=== PATIENT | male | born 1970 | race Hispanic/Latino ===

== ENCOUNTER → 2022-12-02 | Day surgery (SDC) | payer BC ==
[~2022-12-02] MED LIST: CINNAMON500 MG PO; CRESTOR10 MG PO; FENTANYL CITRATE/PF 100MCG/2 ML INJ ONE; LACTATED RINGER'S 1,000 ML ONE; LIDOCAINE HCL 2% LOCAL INJ 5 ML SDV VIAL INJ ONE; LOSARTAN-HCTZ1 EACH PO; METFORMIN HCL500 MG PO; PROPOFOL IV EMULSION 10 MG/ML 20 ML VIAL ONE; PROPOFOL IV EMULSION 10 MG/ML 50 ML VIAL IV ONE
[2022-12-02 11:25] VITALS: BP 118/74
== END | disposition home or self-care (01) ==
LOC: OR 08:16
PROVIDERS: ATTEND Internal Medicine Gastroenterology
DX: R10.32 Left lower quadrant pain (principal); D12.0 Benign neoplasm of cecum; D12.3 Benign neoplasm of transverse colon; K62.1 Rectal polyp; R19.04 Left lower quadrant abdominal swelling, mass and lump; K64.8 Other hemorrhoids; Z71.3 Dietary counseling and surveillance; E11.9 Type 2 diabetes mellitus without complications; E78.00 Pure hypercholesterolemia, unspecified; Z01.810 Encounter for preprocedural cardiovascular examination; Z79.84 Long term (current) use of oral hypoglycemic drugs; Z79.899 Other long term (current) drug therapy; Z68.26 Body mass index [BMI] 26.0-26.9, adult; Z86.16 Personal history of COVID-19
CPT/HCPCS: 36415; 45380; 45385; 82948; 93005; J2001; J2704 ×2; J3010; J7121; 45378; 45384

== ENCOUNTER 2023-07-28 20:01 | Emergency (ER) | payer BC ==
[~2023-07-28] VITALS: Ht 177.8 cm; Wt 96.2 kg
[~2023-07-28 20:01] MED LIST changes: -FENTANYL CITRATE/PF 100MCG/2 ML INJ ONE; -LACTATED RINGER'S 1,000 ML ONE; -LIDOCAINE HCL 2% LOCAL INJ 5 ML SDV VIAL INJ ONE; -PROPOFOL IV EMULSION 10 MG/ML 20 ML VIAL ONE; -PROPOFOL IV EMULSION 10 MG/ML 50 ML VIAL IV ONE
[2023-07-28 21:48] LABS: ALBUMIN 4.2 g/dL (3.5-5.0); ALBUMIN/GLOBULIN RATIO 1.2 (0.8-2.0); ANION GAP 16.7 mmol/L (8-16); BILIRUBIN,TOTAL 0.9 mg/dL (0.2-1.2); CALCIUM 9.7 mg/dL (8.4-10.2); CREATININE, SERUM 0.96 mg/dL (0.72-1.25); POTASSIUM 3.7 mmol/L (3.5-5.1); TOTAL PROTEIN 7.6 g/dL (6.5-8.1)
[2023-07-28 22:05] LABS: BASOPHILS % 0.4 % (0.0-1.0); EOSINOPHILS # (AUTO) 0.2 (0.0-0.4); EOSINOPHILS % 1.5 % (0.0-6.0); HEMATOCRIT 43.9 % (38.2-49.6); HEMOGLOBIN 14.6 g/dL (14.0-18.0); LYMPHOCYTES # (AUTO) 1.8 (1.0-3.2); LYMPHOCYTES % 16.1 % (18.0-39.1); MEAN CORPUSCULAR HEMOGLOBIN 26.4 pg (28-32); MEAN CORPUSCULAR HGB CONC 33.3 g/dL (31-35); MEAN CORPUSCULAR VOLUME 79.2 fL (81-99); MONOCYTES # (AUTO) 0.7 (0.2-0.8); MONOCYTES % 6.3 % (4.4-11.3); NEUTROPHILS # (AUTO) 8.5 (2.1-6.9); NEUTROPHILS % 74.8 % (38.7-80.0); PLATELET COUNT 313 x10e3/uL (140-360); RED BLOOD COUNT 5.54 x10e6/uL (4.3-5.7); WHITE BLOOD COUNT 11.35 x10e3/uL (4.8-10.8)
[2023-07-28] MEDS ORDERED: IOPAMIDOL 370 MG/ML 100 ML INFUS..BTL INJ ONE (22:19)
[2023-07-28] MEDS ORDERED: SODIUM CHLORIDE 0.9% 100 ML ONE (22:20)
[2023-07-28 22:58] LABS: COLOR,URINE YELLOW (YELLOW)
[2023-07-28 22:59] LABS: BILIRUBIN,URINE NEGATIVE (NEGATIVE); CLARITY,URINE CLEAR (CLEAR); GLUCOSE, URINE 2+ (NEGATIVE); KETONES,URINE TRACE (NEGATIVE); LEUKOCYTE ESTERASE ,URINE NEGATIVE (NEGATIVE); NITRITE,URINE NEGATIVE (NEGATIVE); PH,URINE 5.5 (5 - 7); PROTEIN,URINE DIPSTICK TRACE (NEGATIVE); URINE UROBILINOGEN 0.2 mg/dL (0.2 - 1)
[2023-07-29 00:11] LABS: WBC,URINE (MAN) 0-5 /HPF (0-5)
[2023-07-29 00:13] LABS: BACTERIA,URINE MODERATE /HPF; EPITHELIAL CELLS,URINE FEW /LPF; RBC,URINE 0-5 /HPF (0-5)
[2023-07-29 00:17] VITALS: O2SAT 98
[2023-07-29] MEDS ORDERED: DOXYCYCLINE HY100 MG PO (00:24)
== END 2023-07-29 00:44 | disposition home or self-care (01) ==
LOC: ER 20:10
DX: R10.30 Lower abdominal pain, unspecified (principal); K80.20 Calculus of gallbladder without cholecystitis without obstruction; K76.0 Fatty (change of) liver, not elsewhere classified; R30.0 Dysuria; E11.65 Type 2 diabetes mellitus with hyperglycemia; I10 Essential (primary) hypertension; E78.5 Hyperlipidemia, unspecified; R94.31 Abnormal electrocardiogram [ECG] [EKG]
CPT/HCPCS: 36415; 71275; 74174; 80053; 81001; 84484; 85025; 93005; 99284; J7050; Q9967

== ENCOUNTER → 2024-08-26 | Day surgery (SDC) | payer BC ==
[2024-08-20 09:10] LABS: BASOPHILS % 0.5 % (0.0-1.0); EOSINOPHILS # (AUTO) 0.1 (0.0-0.4); EOSINOPHILS % 1.8 % (0.0-6.0); HEMATOCRIT 42.9 % (38.2-49.6); HEMOGLOBIN 13.9 g/dL (14.0-18.0); LYMPHOCYTES # (AUTO) 1.6 (1.0-3.2); MEAN CORPUSCULAR HEMOGLOBIN 26.5 pg (28-32); MEAN CORPUSCULAR HGB CONC 32.4 g/dL (31-35); MEAN CORPUSCULAR VOLUME 81.7 fL (81-99); MONOCYTES # (AUTO) 0.5 (0.2-0.8); NEUTROPHILS % 68.3 % (38.7-80.0); PLATELET COUNT 254 x10e3/uL (140-360); RED BLOOD COUNT 5.25 x10e6/uL (4.3-5.7); WHITE BLOOD COUNT 7.32 x10e3/uL (4.8-10.8)
[2024-08-20 09:46] LABS: ALBUMIN/GLOBULIN RATIO 1.5 (0.8-2.0); ANION GAP 13.1 mmol/L (8-16); BILIRUBIN,TOTAL 1.1 mg/dL (0.2-1.2); CALCIUM 9.6 mg/dL (8.4-10.2); CREATININE, SERUM 0.87 mg/dL (0.72-1.25); POTASSIUM 4.1 mmol/L (3.5-5.1); TOTAL PROTEIN 6.7 g/dL (6.5-8.1)
[~2024-08-26] MED LIST changes: +ACETAMINOPHEN 1000 MG/100 ML 100 ML IV ONE; +DOXYCYCLINE HY100 MG PO; +FENTANYL CITRATE/PF 100MCG/2 ML INJ ONE; +LIDOCAINE HCL 2% LOCAL INJ 5 ML SDV VIAL INJ ONE; +METOCLOPRAMIDE HCL 10 MG/2ML VIAL ONE; +ONDANSETRON HCL INJ 2MG/ML 2ML 2 MG/ML VIAL ONE; +PROPOFOL IV EMULSION 10 MG/ML 20 ML VIAL ONE; +ROCURONIUM BROMIDE 1 ML IV ONE; +SUGAMMADEX SODIUM 200 MG/2 ML VIAL IV ONE
[2024-08-26] MEDS: LACTATED RINGER'S 1,000 ML ONE (10:09)
[2024-08-26] MEDS: FENTANYL CITRATE/PF 100MCG/2 ML INJ ONE (13:22)
[2024-08-26] MEDS: HYDRALAZINE HCL 20 MG/ML VIAL ONE (13:45)
[2024-08-26] MEDS: HYDROMORPHONE 1MG/1ML INJ ONE (13:45)
[2024-08-26] MEDS: HYDROCODONE/APAP 7.5MG-325MG 1 EA TAB ONE (14:10)
[2024-08-26 15:15] VITALS: BP 140/90; PULSE 72; RESP 18; O2SAT 100
== END | disposition home or self-care (01) ==
LOC: OR 09:01
PROVIDERS: ATTEND Surgery
DX: K80.10 Calculus of gallbladder with chronic cholecystitis without obstruction (principal); K42.9 Umbilical hernia without obstruction or gangrene; E11.9 Type 2 diabetes mellitus without complications; I10 Essential (primary) hypertension; E66.01 Morbid (severe) obesity due to excess calories; Z01.810 Encounter for preprocedural cardiovascular examination; Z01.812 Encounter for preprocedural laboratory examination; Z79.84 Long term (current) use of oral hypoglycemic drugs
CPT/HCPCS: 36415; 47562; 80053; 85025; 88304; 93005; C1766; J0131; J0360; J1171; J2003; J2405; J2704; J2765; J3010; J7121

== ENCOUNTER 2025-03-29 21:05 | Emergency (ER) | payer BC, OTHER ==
[~2025-03-29] VITALS: Ht 180.3 cm; Wt 86.2 kg
[~2025-03-29 21:05] MED LIST changes: -ACETAMINOPHEN 1000 MG/100 ML 100 ML IV ONE; -FENTANYL CITRATE/PF 100MCG/2 ML INJ ONE; -LIDOCAINE HCL 2% LOCAL INJ 5 ML SDV VIAL INJ ONE; -METOCLOPRAMIDE HCL 10 MG/2ML VIAL ONE; -ONDANSETRON HCL INJ 2MG/ML 2ML 2 MG/ML VIAL ONE; -PROPOFOL IV EMULSION 10 MG/ML 20 ML VIAL ONE; -ROCURONIUM BROMIDE 1 ML IV ONE; -SUGAMMADEX SODIUM 200 MG/2 ML VIAL IV ONE
[2025-03-29 21:07] VITALS: PULSE 67; RESP 17; TEMP 98.3; O2SAT 100
[2025-03-29] MEDS ORDERED: LIDOCAINE HCL 1% LOCAL INJ 20 ML VIAL ONE (21:12)
[2025-03-29] MEDS ORDERED: AUGMENTIN 500-1 EACH PO (21:18)
[2025-03-29] MEDS ORDERED: KETOROLAC TROME10 MG PO (21:19)
[2025-03-29] MEDS: LIDOCAINE 1% 10 ML MULTIDOSE VIAL IJ ONE (21:31)
== END 2025-03-29 21:30 | disposition home or self-care (01) ==
LOC: ER 21:15
DX: K08.89 Other specified disorders of teeth and supporting structures (principal); I10 Essential (primary) hypertension; E11.9 Type 2 diabetes mellitus without complications; E78.5 Hyperlipidemia, unspecified
CPT/HCPCS: 99282; J2003

== ENCOUNTER 2025-05-25 16:00 | Emergency (ER) | payer BC, OTHER ==
[~2025-05-25] VITALS: Ht 180.3 cm; Wt 86.2 kg
[~2025-05-25 16:00] MED LIST changes: +AUGMENTIN 500-1 EACH PO; +KETOROLAC TROME10 MG PO
[2025-05-25 16:40] VITALS: PULSE 68; RESP 17; TEMP 98.7; O2SAT 100
[2025-05-25] MEDS ORDERED: PENICILLIN V P500 MG PO (16:49)
[2025-05-25] MEDS ORDERED: KETOROLAC TROMETHAMINE 60 MG/2 ML VIAL ONE (16:54)
[2025-05-25] MEDS: KETOROLAC TROMETHAMINE 60 MG/2 ML VIAL IM ONE (16:59)
== END 2025-05-25 17:01 | disposition home or self-care (01) ==
LOC: ER 16:46
DX: K08.89 Other specified disorders of teeth and supporting structures (principal); I10 Essential (primary) hypertension; E11.8 Type 2 diabetes mellitus with unspecified complications; E78.5 Hyperlipidemia, unspecified
CPT/HCPCS: 99282; J1885

== ENCOUNTER 2025-06-10 23:39 | Emergency (ER) | payer OTHER ==
[~2025-06-10] VITALS: Ht 177.8 cm; Wt 88.5 kg
[~2025-06-10 23:39] MED LIST changes: +PENICILLIN V P500 MG PO
[2025-06-10 23:50] VITALS: PULSE 63; RESP 17; TEMP 98.6
[2025-06-11] MEDS: BUPIVACAINE HCL 0.25% 10ML MPF VIAL INJ ONE (01:08)
[2025-06-11 01:31] VITALS: BP 155/60; PULSE 62; RESP 17; TEMP 98.3; O2SAT 100
== END 2025-06-11 00:21 | disposition home or self-care (01) ==
LOC: ER 23:52
DX: K08.89 Other specified disorders of teeth and supporting structures (principal); I10 Essential (primary) hypertension; E11.9 Type 2 diabetes mellitus without complications; E78.5 Hyperlipidemia, unspecified
CPT/HCPCS: 99282